=== PATIENT | female | born 1935 | race Caucasian/White ===

== ENCOUNTER 2020-07-06 22:18 | Inpatient (IN) | payer MEDICARE ==
[~2020-07-06] VITALS: Ht 162.6 cm; Wt 127.5 kg
--- NOTE | 2020-07-06 22:20 | NUR ---
PT CHRISTO 89 FROM [facility] C/O CP PASTRY DECORATOR. PT DENIES CHEST PAIN AT THIS TIME. REC'D ASA 324MG, ZOFRAN SL, AND 2 SPRAYS OF NITRO. PT AAOX4, VSS, RESPIRATIONS EVEN AND UNLABORED W/ NAD NOTED. PT CONNECTED TO THE GEOPHYSICS TEACHER AND POX.
--- NOTE | 2020-07-06 22:25 | NUR ---
BLOOD COLLECTED AND SENT TO LAB
--- NOTE | 2020-07-06 22:30 | NUR ---
XRAY AT BEDSIDE
[2020-07-06 22:38] LABS: BASOPHILS % (AUTO) 0.7 % (0.0-2.0); EOSINOPHILS % (AUTO) 1.2 % (0.0-6.0); HEMATOCRIT 33 % (33-45); HEMOGLOBIN 10.6 g/dL (11.5-14.8); LYMPHOCYTES # (AUTO) 0.9 /CMM (0.8-4.8); LYMPHOCYTES % (AUTO) 24.6 % (20.0-44.0); MEAN CORPUSCULAR HGB CONC 32 g/dl (31.0-36.0); MEAN CORPUSCULAR VOLUME 92 fL (82-100); MONOCYTES # (AUTO) 0.4 /CMM (0.1-1.30); MONOCYTES % (AUTO) 11.8 % (2.0-12.0); NEUTROPHILS # (AUTO) 2.3 /CMM (1.8-8.9); NEUTROPHILS % (AUTO) 61.7 % (43.0-81.0); PLATELET COUNT (AUTO) 188 /CMM (150-450); RED BLOOD CELL COUNT(AUTO) 3.56 MIL/uL (4.0-5.2); WHITE BLOOD COUNT (AUTO) 3.7 K/uL (4.3-11.0)
--- NOTE | 2020-07-06 22:40 | NUR ---
ROBINSON COLLECTED AND SENT TO LAB
[2020-07-06 22:51] LABS: CALCIUM, SERUM 8.5 mg/dL (8.5-10.1); CREATININE 1.3 mg/dL (0.6-1.3); POTASSIUM 4.5 mmol/L (3.5-5.1)
[2020-07-06 23:12] LABS: ALBUMIN 3.3 g/dL (3.4-5.0); BILIRUBIN,DIRECT 0.1 mg/dL (0.0-0.2); BILIRUBIN,TOTAL 0.2 mg/dL (0.2-1.0); TOTAL PROTEIN, SERUM 6.9 g/dL (6.4-8.2)
[2020-07-06] MEDS ORDERED: ATOR80TA PO (23:13)
[2020-07-06] MEDS ORDERED: ESCI20TA PO (23:13)
[2020-07-06] MEDS ORDERED: FURO-144 PO (23:13)
[2020-07-06] MEDS ORDERED: UBID100C13 PO (23:13)
[2020-07-06] MEDS ORDERED: GLIM2TAB31 PO (23:13)
[2020-07-06] MEDS ORDERED: TRAM50TA2 PO (23:13)
[2020-07-06] MEDS ORDERED: OLME20TA13 PO (23:13)
[2020-07-06] MEDS ORDERED: GABA600T12 PO (23:13)
[2020-07-06] MEDS ORDERED: AMLO-212 PO (23:13)
[2020-07-06] MEDS ORDERED: LINA5TAB PO (23:13)
[2020-07-06] MEDS ORDERED: OXCA300T15 PO (23:13)
[2020-07-06] MEDS ORDERED: HYDR-4077 PO (23:13)
[2020-07-06] MEDS ORDERED: POTA20TA83 PO (23:13)
[2020-07-06] MEDS ORDERED: MULT-447 PO (23:13)
[2020-07-06] MEDS ORDERED: ESOM40CA52 PO (23:13)
[2020-07-06] MEDS ORDERED: CHLO25TA2 PO (23:13)
[2020-07-06] MEDS ORDERED: OXYB10TA30 PO (23:13)
[2020-07-06] MEDS ORDERED: MAG HYDROX/AL HYDROX/SIMETH 30 ML UDC PO PRN (23:30)
[2020-07-06] MEDS ORDERED: ZOLPIDEM TARTRATE 5 MG TABLET PO PRN (23:30)
[2020-07-06] MEDS ORDERED: MAGNESIUM HYDROXIDE 30 ML UDC PO PRN (23:30)
[2020-07-06] MEDS ORDERED: Z GUARD REMEDY 2 OZ OINT TP PRN (23:30)
[2020-07-06] MEDS ORDERED: ONDANSETRON HCL/PF 4 MG/2 ML VIAL IVP PRN (23:30)
--- NOTE | 2020-07-06 23:33 | NUR ---
REPORT GIVEN TO LATOYA HENSON FOR GUSTABO
--- NOTE | 2020-07-06 23:49 | NUR ---
KEVIN PERDOMO. [phone] PT'S DAUGHTER
[2020-07-07] VITALS (7 sets, daily range): BP systolic 118–146; BP diastolic 52–67
--- NOTE | 2020-07-07 01:00 | NUR ---
BRAKE REPAIRER HYDRAULICSCALER PACKER NOTES RECEIVED PATIENT FROM ER VIA ISIDRORANGEL, ALERT AND ORIENTED X 4. VERBALLY RESPONSIVE AND ABLE TO FOLLOW DIRECTIONS. AMBULATORY WITH ASSIST AND WALKER. BREATHING REGULAR AND UNLABORED ON OXYGEN AT 2L/MIN VIA NASAL CANNULA. RIGHT AC G18 IV LINE INTACT AND PATENT, FLUSHING WELL WITH NO BLEEDING OR S/S OF INFILTRATION NOTED. BODY ASSESSMENT DONE, SKIN INTACT CLEAN AND DRY. ATTACHED TO PULP BEATER WITH INITIAL READING OF SINUS BRADYCARDIA AT 55bpm. DENIES SUICIDAL IDEATION OR PAIN/DISCOMFORT A THIS TIME. BED LOW AND LOCKED ON SEMI FOWLERS POSITION. CALL LIGHT IN REACH. WILL CONTINUE TO MONITOR.
--- NOTE | 2020-07-07 01:18 | NUR ---
PT TRANSFERRED TO ROOM PER ACLS PROTOCOL
--- NOTE | 2020-07-07 01:30 | NUR ---
ICU NURSE NOTES PATIENT SAID SHE HAVE AN ADVANCE DIRECTIVES AND WILL CALL HER DAUGHTER TODAY TO PROVIDE THE COPY, SHE WISHED TO BE ON DNR. "JUST LET ME NATURALLY" SHE VERBALIZED. NOTIFIED AND SAID SHE WILL PUT THE ORDERS FOR DNR.
--- NOTE | 2020-07-07 03:00 | NUR ---
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
[2020-07-07] MEDS: HYDROCODONE/APAP 5/325MG TABLET PO PRN ×5 (04:15→22:49)
[2020-07-07] MEDS: ACETAMINOPHEN 325 MG TABLET PO PRN (05:25)
--- NOTE | 2020-07-07 06:45 | NUR ---
POWER PRESS TENDER CLOSING NOTES PATIENT IN BED, ALERT AND ORIENTED X 4. AFEBRILE WITH NO S/S OF DISTRESS OBSERVED. RIGHT AC G18 IV LINE PATENT AND FLUSHING WELL. MAINTAINED ON CARDIAC MONITORING WITH SINUS BRADYCARDIA AT 52bpm. NO COMPLAINTS OF PAIN/DISCOMFORT AT THIS TIME. BED LOW AND LOCKED ON SEMI FOWLERS POSITION. CALL LIGHT IN REACH. WILL ENDORSE TO MORNING SHIFT FOR GUSTABO.
[2020-07-07 07:42] LABS: THYROID STIMULATING HORMONE 1.014 uIU/mL (0.358-3.74)
[2020-07-07] MEDS: ASPIRIN 81 MG TAB.CHEW PO SCH (08:15)
[2020-07-07] MEDS: HEPARIN SODIUM, PORCINE 5000 UNITS/1 ML VIAL SQ SCH ×2 (08:15→21:25)
[2020-07-07 10:07] LABS: PHOSPHORUS 4.4 mg/dL (2.5-4.9)
--- NOTE | 2020-07-07 11:08 | NUR ---
SKYLER KLEIN NOTES LEORA DIAZ NP EVALUATED PATIENT. MADE AWARE OF PATIENTS CT RESULTS.
[2020-07-07] MEDS: METOPROLOL TARTRATE 25 MG TABLET PO SCH ×2 (13:30→21:00)
--- NOTE | 2020-07-07 18:30 | NUR ---
ALLEY TENDER NOTES PATIENT IN BED RESTING NO SOB OR ACUTE DISTRESS NOTED. PATIENTS PAIN WAS MANAGED WITH MEDICATIONS. ALL DUE MEDICATIONS ADMINISTERED, ALL NEEDS MET. NO ACUTE CHANGES NOTED DURING AM SHIFT. WILL ENDORSE CARE TO PM SHIFT.
--- NOTE | 2020-07-07 19:30 | NUR ---
TELE/RN OPENING NOTES RECEIVED PATIENT IN BED RESTING. PATIENT IS ALERT AND ORIENTED X 4. NO SIGNS OF SOB OR RESPIRATORY DISTRESS NOTED. PATIENT TELE READING SB. NO PAIN AT THIS TIME. PATIENT HAS IV ACCESS RIGHT AC #18G INTACT SL. NO DISTRESS NOTED. SAFETY MEASURES ARE IN PLACE, BED IS LOCKED AND PLACED IN THE LOW POSITION, SIDE RAILS UP X 2, BED ALARM ON. CALL LIGHT IS WITHIN REACH. WILL MONITOR THROUGH OUT SHIFT.
[2020-07-07] MEDS: ATORVASTATIN 40 MG TABLET PO SCH (21:24)
--- NOTE | 2020-07-07 22:50 | NUR ---
TELE/MS NOTES PATIENT COMPLAINING OF PAIN AREA BACK OF NECK. NORCO 5/325 PO WAS GIVEN. V/S ARE STABLE.
[2020-07-08] VITALS (8 sets, daily range): BP systolic 121–159; BP diastolic 56–73
[2020-07-08] MEDS: HYDROCODONE/APAP 5/325MG TABLET PO PRN ×3 (03:14→09:03)
--- NOTE | 2020-07-08 03:15 | NUR ---
TELE/MS NOTES PATIENT COMPLAINING OF PAIN AREA BACK OF NECK. NORCO 5/325 PO WAS GIVEN. V/S ARE STABLE.
--- NOTE | 2020-07-08 05:45 | NUR ---
TELE/RN NOTES WHILE AMBULATING TO RESTROOM, PATIENT IV ACCESS BECAME DISLODGED. PATIENT REFUSED TO HAVE NEW IV ACCESS, RISK AND BENEFITS HAVE BEEN EXPLAINED. WILL ATTEMPT TO START NEW LINE AT LATER TIME. WILL CONTINUE TO MONITOR.
[2020-07-08] MEDS: ACETAMINOPHEN 325 MG TABLET PO PRN ×2 (05:54→16:46)
[2020-07-08 05:56] LABS: BILIRUBIN,URINE NEGATIVE (NEGATIVE); BLOOD, URINE NEGATIVE Ery/uL (NEGATIVE); COLOR,URINE YELLOW (YELLOW); LEUKOCYTE ESTERASE ,URINE NEGATIVE (NEGATIVE); NITRITE, URINE NEGATIVE (NEGATIVE); PH,URINE 5.5 (5.0-8.0); PROTEIN,URINE NEGATIVE (NEGATIVE); UGLUCOSE NEGATIVE (NEGATIVE); UROBILINOGEN,URINE 0.2 EU/dL (0.2)
--- NOTE | 2020-07-08 06:00 | NUR ---
TELE/MS NOTES PATIENT STATED PAIN AT THE BACK OF NECK AREA. TYLENOL 650 PO WAS GIVEN. WILL CONTINUE TO MONITOR.
[2020-07-08 06:07] LABS: BASOPHILS % (AUTO) 0.3 % (0.0-2.0); EOSINOPHILS % (AUTO) 0.7 % (0.0-6.0); HEMATOCRIT 31 % (33-45); LYMPHOCYTES % (AUTO) 25.7 % (20.0-44.0); MEAN CORPUSCULAR HGB CONC 32 g/dl (31.0-36.0); MEAN CORPUSCULAR VOLUME 92 fL (82-100); MONOCYTES # (AUTO) 0.4 /CMM (0.1-1.30); MONOCYTES % (AUTO) 9.1 % (2.0-12.0); NEUTROPHILS # (AUTO) 2.6 /CMM (1.8-8.9); NEUTROPHILS % (AUTO) 64.2 % (43.0-81.0); PLATELET COUNT (AUTO) 177 /CMM (150-450); RED BLOOD CELL COUNT(AUTO) 3.42 MIL/uL (4.0-5.2); WHITE BLOOD COUNT (AUTO) 4.1 K/uL (4.3-11.0)
[2020-07-08 06:10] LABS: CREATININE, URINE 96.2 MG/DL (30.0-125.0); URINE TOTAL PROTEIN 30.4 mg/dL (0-11.9)
--- NOTE | 2020-07-08 06:20 | NUR ---
TELE/RN NOTE PER PATIENT REQUEST. CALLED PATIENTS BROTHER MUKESH TO INFORM HIM OF PATIENT'S STATUS. PATIENT HAS BEEN EXPERIENCING PAIN. PATIENT SAID TO KEEP BROTHER INFORMED OF CARE.
[2020-07-08 06:26] LABS: ALANINE AMINOTRANSFERASE 26 U/L (12-78); ALBUMIN 3.1 g/dL (3.4-5.0); ALKALINE PHOSPHATASE 87 U/L (46-116); ASPARTATE AMINOTRANSFERASE 22 U/L (15-37); BILIRUBIN,TOTAL 0.2 mg/dL (0.2-1.0); CALCIUM, SERUM 8.1 mg/dL (8.5-10.1); CARBON DIOXIDE 28 mmol/L (21-32); CHLORIDE 102 mmol/L (98-107); CREATININE 1.4 mg/dL (0.6-1.3); GLUCOSE 130 mg/dL (74-106); PHOSPHORUS 3.6 mg/dL (2.5-4.9); POTASSIUM 4.3 mmol/L (3.5-5.1); SODIUM SERUM 138 mmol/L (136-145); TOTAL PROTEIN, SERUM 6.6 g/dL (6.4-8.2); UREA NITROGEN, BLOOD 32 mg/dL (7-18)
--- NOTE | 2020-07-08 06:35 | NUR ---
TELE/RN CLOSING NOTES PATIENT IN BED RESTING. PATIENT IS ALERT AND ORIENTED X 4. NO SIGNS OF SOB OR RESPIRATORY DISTRESS NOTED. PATIENT TELE READING SB 58 BPM. PATIENT STILL EXPERIENCING PAIN AT THIS TIME. NO DISTRESS NOTED. ALL NEEDS HAVE BEEN MET DURING SHIFT. SAFETY MEASURES ARE IN PLACE, BED IS LOCKED AND PLACED IN THE LOW POSITION, SIDE RAILS UP X 2, BED ALARM ON. CALL LIGHT IS WITHIN REACH. WILL ENDORSE CARE TO DAY SHIFT NURSE.
--- NOTE | 2020-07-08 07:58 | NUR ---
RN Opening note Received patient in bed AO x 3-4 , able to responds all stimuli. Skin is warm to touch, keep clean/dry. Respiratory even and unlabored on room. Patient refused reinsert IV line reported engine test cell technician. Kept locked bed with elevated HOB for ensure airway and lowest position for safety. Call light within reach and bed alarm on at all times. Call light within reach, will continue to monitor.
[2020-07-08] MEDS: ASPIRIN 81 MG TAB.CHEW PO SCH ×2 (08:48→09:04)
[2020-07-08] MEDS: METOPROLOL TARTRATE 25 MG TABLET PO SCH ×2 (08:53→09:03)
[2020-07-08] MEDS: HEPARIN SODIUM, PORCINE 5000 UNITS/1 ML VIAL SQ SCH ×2 (09:00→21:27)
--- NOTE | 2020-07-08 09:04 | NUR ---
Patient refused all due morning medications stated "All these medications make me crazy I don't want it!' Addendum: 07/08/20 at 0912 by REAGAN HARRIS RN Error
--- NOTE | 2020-07-08 09:12 | NUR ---
Patient changed mind and refused all due morning medications stated "All these medications make me crazy I don't want it!' " I want Tylenol instead.' Will return meds and give Tylenol.
--- NOTE | 2020-07-08 09:53 | NUR ---
[facility] called x 3 asked primary Nurse Covid test result, mentioned them to get information from Brother/Donovan.
[2020-07-08 10:49] LABS: EOSINOPHIL,URINE None Seen
[2020-07-08 15:48] LABS: C-REACTIVE PROTEIN 2.9 mg/dL (0.0-0.9)
--- NOTE | 2020-07-08 16:07 | NUR ---
Called [facility] to obtain pathrogy and mediacl record but they closed already. Will endorse next shift to follow up.
--- NOTE | 2020-07-08 18:00 | NUR ---
RN Closing note Patient in bed resting comfortably, dos no c/o pain or any discomfort. Received labs, repeat ultra sound and obtain pathology/medical record for skin malignancy from facility ordered by AYANNA/Ana. Called [facility] but office closed already, AWNING ERECTOR mentioned if does not finish labs, pt can do as out patient. Skin is warm to touch keep clean/dry, given skin care. Respiratory even and unlabored on room air O2sat 95%., no cough sob observed. Kept locked bed and elevated HOB for aspiration precaution, also lowest position for safety. Call light within reach, will endorse beam house inspector.
--- NOTE | 2020-07-08 19:05 | NUR ---
RN NOTE RECEIVED PATIENT IN BED RESTING WITH HOB ELEVATED. PATIENT IS ALERT AND ORIENTED X 2-3. DNR/DNI CODE STATUS. ON ISOLATION FOR POSITIVE FOR COVID-19. PATIENT IS VERBALLY RESPONSIVE IN MALDIVIAN. SPEECH IS CLEAR. BREATHING IS EVEN AND UNLABORED. NO SOB NOTED AT THIS TIME. O2 SAT IS 95% ON ROOM AIR. PER AM SHIFT REPORT, PATIENT HAS PERIODS OF CONFUSION. PATIENT ALSO REFUSED IV INSERTION PER AM NURSE, AWARE. SKIN IS INTACT. PATIENT IS AMBULATORY WITH WALKER. PATIENT IS INCONTINENT OF BLADDER. COMMODE IS AT BED SIDE. IN NO APPARENT DISTRESS NOTED AT THIS TIME. CALL LIGHT IS WITHIN EASY REACH. WILL CONTINUE TO MONITOR.
[2020-07-08 19:12] LABS: OCCULT BLOOD STOOL NEGATIVE (NEGATIVE)
[2020-07-08] MEDS: ATORVASTATIN 40 MG TABLET PO SCH (21:26)
--- NOTE | 2020-07-08 23:30 | NUR ---
RN NOTE NOTED PATIENT HAD BP OF 190/77. INFORMED HAND PICKER , DR. CASIANO. RECEIVED ORDER FOR HYDRALAZINE 25 MG PO Q4H PRN FOR SBP > 160. ORDER NOTED AND CARRIED OUT. WILL CONTINUE TO MONITOR.
[2020-07-09] VITALS: BP 190/77
[2020-07-09] MEDS: hydrALAZINE HCL 25 MG TABLET PO PRN ×2 (00:03→11:02)
[2020-07-09 04:00] VITALS: BP 158/104
--- NOTE | 2020-07-09 06:55 | NUR ---
RN NOTE PATIENT REMAINED STABLE THROUGHOUT THE NIGHT. NO SIGNIFICANT CHANGES NOTED. ON BILATERAL SOFT WRIST RESTRAINTS. PATIENT STILL TRIES TO PULL OUT IV LINES. PATIENT IS KEPT CLEAN, DRY, AND COMFORTABLE. REPOSITIONED Q2H. DUE MEDS GIVEN ORDERED AND TOLERATED WELL. WILL ENDORSE TO AM SHIFT RN FOR CONTINUATION OF CARE. Addendum: 07/09/20 at 0700 by SANFORD BASHIR RN WRONG PATIENT.
--- NOTE | 2020-07-09 07:07 | NUR ---
RN NOTE PATIENT REMAINED STABLE THROUGHOUT THE NIGHT. NO SIGNIFICANT CHANGES NOTED. PATIENT IS KEPT CLEAN, DRY, AND COMFORTABLE. PATIENT TAKEN TO BEDSIDE COMMODE 5 TIMES THROUGHOUT THE NIGHT. DUE MEDS GIVEN ORDERED AND TOLERATED WELL. WILL ENDORSE TO AM SHIFT RN FOR CONTINUATION OF CARE.
--- NOTE | 2020-07-09 07:20 | NUR ---
BINDER LAYER NOTES PATIENT RECEIVED IN BED, ALERT AND ORIENTED X 2-3. PATIENT ON 2 LITERS NASAL CANNULA, TOLERATING OXYGEN SETTING WELL WITH NO SOB NOTED AT THIS TIME, WITH NON-LABORED BREATHING. PATIENT HAS NO IV ACCESS STATED BY NIGHTSHIFT RN, MD IS AWARE. ON CORPORATE AIRCRAFT MECHANIC SINUS RHYTHM WITH BBB, 60'S. PATIENT SKIN WARM AND DRY TO TOUCH. PATIENT DENIES PAIN OR DISCOMFORT AT THIS TIME. SAFETY PRECAUTIONS IMPLEMENTED WITH BED LOCKED, BED ALARM ON, BILATERAL SIDE RAILS UP, BED IN THE LOWEST POSITION, AND CALL LIGHT WITHIN EASY REACH OF PATIENT. WILL CONTINUE TO MONITOR PATIENT.
[2020-07-09 08:00] VITALS: BP 168/82
[2020-07-09] MEDS: METOPROLOL TARTRATE 25 MG TABLET PO SCH ×2 (08:59→21:45)
[2020-07-09] MEDS: ASPIRIN 81 MG TAB.CHEW PO SCH (08:59)
[2020-07-09] MEDS: HEPARIN SODIUM, PORCINE 5000 UNITS/1 ML VIAL SQ SCH ×2 (09:03→21:33)
[2020-07-09 09:35] LABS: IMMUNOGLOBULIN A, SERUM 126 mg/dL (64-422); IMMUNOGLOBULIN G, SERUM 1019 mg/dL (586-1602); IMMUNOGLOBULIN M, SERUM 255 mg/dL (26-217)
[2020-07-09 12:00] VITALS: BP 157/85
--- NOTE | 2020-07-09 12:05 | NUR ---
Attempted to perform BONE SURVEY XRAYS on patient, twice this morning, one at 1000 and another at 1207. Only Chest,, skull, cervical and thoracic AP views were taken. LATOYA shelley.
--- NOTE | 2020-07-09 15:36 | NUR ---
FILTER OPERATOR NOTES CALLED [facility], , FOR MEDICAL REPORTS AND PATHOLOGY REPORTS, STATES THEY ARE CLOSED DURING THE WEEKEND AND TO CALL BACK ON SATURDAY.
[2020-07-09 16:00] VITALS: BP 115/91
[2020-07-09 16:40] LABS: *ANA ANTI-CENTROMERE B AB <0.2 AI (0.0-0.9); *ANA ANTI-DNA(DS) AB, QN 2 IU/mL (0-9); *ANA ANTI-JO-1 <0.2 AI (0.0-0.9); *ANA ANTICHROMATIN ANTIBODY <0.2 AI (0.0-0.9); *ANA RNP ANTIBODIES <0.2 AI (0.0-0.9); *ANA SJOGREN'S ANTI-SS-A <0.2 AI (0.0-0.9); *ANA SJOGREN'S ANTI-SS-B <0.2 AI (0.0-0.9); *ANAANTI-SCLERODERMA-70 AB <0.2 AI (0.0-0.9); *ANASMITH AB <0.2 AI (0.0-0.9)
--- NOTE | 2020-07-09 18:22 | NUR ---
FRONT ATTENDANT NOTES PATIENT IN BED RESTING COMFORTABLY, ALERT AND ORIENTED X 2-3. PATIENT ON 2 LITERS NASAL CANNULA, TOLERATING OXYGEN SETTING WELL WITH NO SOB NOTED AT THIS TIME, WITH NON-LABORED BREATHING AND NO RESPIRATORY DISTRESS NOTED. PATIENT HAS NO IV ACCESS MD IS AWARE. ON NET LEAD ARCHITECT, SINUS JERSON 50'S. PATIENT PRESENTS WITH NO PAIN OR DISCOMFORT AT THIS TIME. MET ALL OF PATIENT'S NEEDS. SAFETY PRECAUTIONS IMPLEMENTED WITH BED LOCKED, BED ALARM ON, BILATERAL SIDE RAILS UP, BED IN THE LOWEST POSITION, AND CALL LIGHT WITHIN EASY REACH OF PATIENT. WILL ENDORSE PLAN OF CARE TO UPCOMING RN.
--- NOTE | 2020-07-09 19:00 | NUR ---
RN OPENING NOTES Received patient awake, resting on bed. On O2 via NC @ 2LPM, saturating well, denies any discomfort at this time. NSR on telemonitor. Kept on bed clean, dry and comfortable. On fall and aspiration precautions. Will continue to monitor accordingly.
[2020-07-09 20:00] VITALS: BP 151/67
[2020-07-09] MEDS: ATORVASTATIN 40 MG TABLET PO SCH (21:32)
[2020-07-09] MEDS: ACETAMINOPHEN 325 MG TABLET PO PRN (22:00)
[2020-07-10] VITALS (7 sets, daily range): BP systolic 140–167; BP diastolic 47–78
[2020-07-10] MEDS: hydrALAZINE HCL 25 MG TABLET PO PRN (06:06)
--- NOTE | 2020-07-10 06:49 | NUR ---
RN CLOSING NOTES Pt on bed asleep, no new complaints made. Due meds given as ordered. All nursing needs attended. Kept on bed clean, dry and comfortable. Endorsed.
--- NOTE | 2020-07-10 07:15 | NUR ---
CLINICAL RESEARCH ASSISTANT NOTES PATIENT RECEIVED IN BED, ALERT AND ORIENTED X 2-3. PATIENT ON 2 LITERS NASAL CANNULA, TOLERATING OXYGEN SETTING WELL WITH NO SOB NOTED AT THIS TIME, WITH NON-LABORED BREATHING, AND NO SIGN OF APPARENT DISTRESS AT THIS TIME. PATIENT HAS NO IV ACCESS, MD IS AWARE. PATIENT'S SKIN WARM AND DRY TO TOUCH. ON WOVEN BLIND LOOM TENDER SINUS JERSON, 50'S. PATIENT DENIES PAIN OR DISCOMFORT AT THIS TIME. SAFETY PRECAUTIONS IMPLEMENTED WITH BED LOCKED, BED ALARM ON, BILATERAL SIDE RAILS UP, BED IN THE LOWEST POSITION, AND CALL LIGHT WITHIN EASY REACH OF PATIENT. WILL CONTINUE TO MONITOR PATIENT.
[2020-07-10] MEDS ORDERED: METHYL SALICYLATE/MENTHOL 28GM 28 GM TUBE TP PRN (09:00)
[2020-07-10] MEDS: HEPARIN SODIUM, PORCINE 5000 UNITS/1 ML VIAL SQ SCH ×2 (09:10→21:39)
[2020-07-10] MEDS: ASPIRIN 81 MG TAB.CHEW PO SCH (09:10)
[2020-07-10] MEDS: METOPROLOL TARTRATE 25 MG TABLET PO SCH ×2 (09:24→21:00)
[2020-07-10 10:03] LABS: BASOPHILS % (AUTO) 0.4 % (0.0-2.0); EOSINOPHILS % (AUTO) 0.2 % (0.0-6.0); HEMATOCRIT 33 % (33-45); HEMOGLOBIN 10.8 g/dL (11.5-14.8); LYMPHOCYTES # (AUTO) 0.7 /CMM (0.8-4.8); LYMPHOCYTES % (AUTO) 18.1 % (20.0-44.0); MEAN CORPUSCULAR HGB CONC 33 g/dl (31.0-36.0); MEAN CORPUSCULAR VOLUME 91 fL (82-100); MONOCYTES # (AUTO) 0.3 /CMM (0.1-1.30); NEUTROPHILS # (AUTO) 2.7 /CMM (1.8-8.9); NEUTROPHILS % (AUTO) 72.3 % (43.0-81.0); PLATELET COUNT (AUTO) 168 /CMM (150-450); RED BLOOD CELL COUNT(AUTO) 3.62 MIL/uL (4.0-5.2); WHITE BLOOD COUNT (AUTO) 3.7 K/uL (4.3-11.0)
[2020-07-10 10:24] LABS: CALCIUM, SERUM 8.1 mg/dL (8.5-10.1); CREATININE 1.1 mg/dL (0.6-1.3)
[2020-07-10] MEDS ORDERED: DEXTROSE 50%-WATER 50 ML DISP.SYRIN IV PRN (11:30)
[2020-07-10] MEDS ORDERED: NALOXONE HCL 0.4 MG/ML AMPUL IV PRN (11:30)
[2020-07-10] MEDS ORDERED: HOME MED MISCELLANEOUS XX SCH ×2 (11:30)
[2020-07-10] MEDS: PANTOPRAZOLE 40 MG TABLET.DR PO SCH (12:06)
[2020-07-10] MEDS: BLOOD SUGAR DIAGNOSTIC 1 EACH STRIP IN SCH ×3 (12:06→22:10)
[2020-07-10] MEDS: ESCITALOPRAM OXALATE (10 MG) 10 MG TABLET PO SCH (12:06)
[2020-07-10] MEDS: FUROSEMIDE 40 MG TABLET PO SCH (12:06)
[2020-07-10] MEDS: GABAPENTIN 300 MG CAPSULE PO SCH ×2 (12:06→16:33)
[2020-07-10] MEDS: INSULIN REGULAR, HUMAN 100 UNIT/ML 3 ML VIAL SQ PRN ×2 (12:13→22:11)
[2020-07-10] MEDS ORDERED: SOD FERRIC GLUC 125 MG in IV NS 0.9% 100 ML IV SCH (14:00)
--- NOTE | 2020-07-10 14:40 | NUR ---
SIDE BOSS NOTES INFORMED HOSPITALIST LEORA DIAZ DNP ABOUT PATIENT'S HEART RATE, SINUS BRADYCARDIA IN THE 40'S, PATIENTS IS ALERT AND ASYMPTOMATIC AT THIS TIME. NO NEW ORDERS MADE, WILL CONTINUE TO MONITOR PATIENT.
[2020-07-10] MEDS: POTASSIUM CHLORIDE 20 MEQ TAB.PRT.SR PO SCH (16:33)
[2020-07-10] MEDS: OXCARBAZEPINE 150 MG TABLET PO SCH (16:33)
[2020-07-10] MEDS: HYDROCODONE/APAP 5/325MG TABLET PO PRN (18:33)
--- NOTE | 2020-07-10 19:19 | NUR ---
GRAIN ELEVATOR AGENT NOTES PATIENT IN BED RESTING COMFORTABLY, ALERT AND ORIENTED X 2-3. PATIENT ON 2 LITERS NASAL CANNULA, TOLERATING OXYGEN SETTING WELL WITH NO SOB NOTED AT THIS TIME, WITH NON-LABORED BREATHING AND NO RESPIRATORY DISTRESS NOTED. PATIENT STARTED TO COMPLAIN OF DULL CHEST PAIN, 5/10, PATIENT REQUESTING PAIN MEDICATIONS, ADMINISTERED PRN NORCO ORDERED. PATIENT HAS NO IV ACCESS MD IS AWARE. ON AUTOMATIC PAD MAKING MACHINE OPERATOR, SINUS JERSON 43. MET ALL OF PATIENT'S NEEDS. SAFETY PRECAUTIONS IMPLEMENTED WITH BED LOCKED, BED ALARM ON, BILATERAL SIDE RAILS UP, BED IN THE LOWEST POSITION, AND CALL LIGHT WITHIN EASY REACH OF PATIENT. WILL ENDORSE PLAN OF CARE TO UPCOMING RN.
--- NOTE | 2020-07-10 19:33 | NUR ---
Received patient from morning nurse. Patient is awake, alert, and oriented x3, resting comfortably. Patient denies pain at this time. Patient breathing with 2L Oxygen via nasal canula. No SOB or acute respiratory distress noted. Noted no IV access. Asked patient if I can insert an access, patient refused. Explained risk and benefit to patient but patient still refused. Safety measure in place, bed is in the lowest level, bed is locked, alarm is on, side rails x2 are up, and call light is within reach. Will continue to monitor.
--- NOTE | 2020-07-10 20:10 | NUR ---
Patient's daughter, Rema, called, wanted to speak to patient. Transferred daughter to patient's room phone.
--- NOTE | 2020-07-10 21:20 | NUR ---
Patient's daughter, Krista, called, wanted to speak to patient. Transferred daughter to patient's room phone.
--- NOTE | 2020-07-10 21:37 | NUR ---
Patient HR 44. Made Epic MD aware. Was told my Epic MD to non administer medication.
[2020-07-10] MEDS: ATORVASTATIN 40 MG TABLET PO SCH (21:38)
[2020-07-11] VITALS (7 sets, daily range): BP systolic 124–171; BP diastolic 46–76
[2020-07-11] MEDS: hydrALAZINE HCL 25 MG TABLET PO PRN (05:08)
[2020-07-11] MEDS: ACETAMINOPHEN 325 MG TABLET PO PRN ×2 (05:08→14:59)
--- NOTE | 2020-07-11 05:08 | NUR ---
Patient temperature 100.3. Administered PRN Tylenol per MD order. Also provided cooling measures. Will continue to monitor.
--- NOTE | 2020-07-11 05:09 | NUR ---
Patient BP 171/77. Administered Hydralazine per MD order. Will continue to monitor.
[2020-07-11] MEDS: BLOOD SUGAR DIAGNOSTIC 1 EACH STRIP IN SCH ×4 (06:47→21:24)
[2020-07-11] MEDS: INSULIN REGULAR, HUMAN 100 UNIT/ML 3 ML VIAL SQ PRN ×4 (06:52→21:23)
[2020-07-11 06:54] LABS: CALCIUM, SERUM 8.2 mg/dL (8.5-10.1); CREATININE 1.1 mg/dL (0.6-1.3); POTASSIUM 4.2 mmol/L (3.5-5.1)
--- NOTE | 2020-07-11 07:00 | NUR ---
Rechecked patient temperature, 98.8. Will endorse to morning nurse.
--- NOTE | 2020-07-11 07:00 | NUR ---
Rechecked blood pressure, resulted 124/46, HR 51. Will endorse to next shift.
[2020-07-11 07:03] LABS: BASOPHILS % (AUTO) 0.2 % (0.0-2.0); EOSINOPHILS % (AUTO) 0.2 % (0.0-6.0); HEMATOCRIT 32 % (33-45); HEMOGLOBIN 10.3 g/dL (11.5-14.8); LYMPHOCYTES # (AUTO) 0.7 /CMM (0.8-4.8); MEAN CORPUSCULAR HGB CONC 33 g/dl (31.0-36.0); MEAN CORPUSCULAR VOLUME 91 fL (82-100); MONOCYTES # (AUTO) 0.3 /CMM (0.1-1.30); MONOCYTES % (AUTO) 8.6 % (2.0-12.0); NEUTROPHILS # (AUTO) 2.8 /CMM (1.8-8.9); PLATELET COUNT (AUTO) 167 /CMM (150-450); RED BLOOD CELL COUNT(AUTO) 3.47 MIL/uL (4.0-5.2); WHITE BLOOD COUNT (AUTO) 3.9 K/uL (4.3-11.0)
--- NOTE | 2020-07-11 07:15 | NUR ---
PRODUCT MARKETING ENGINEER NOTES PATIENT RECEIVED IN BED, SLEEPING AWAKEN BY NAME AND LIGHT TOUCH, ALERT AND ORIENTED X 2-3. PATIENT ON 2 LITERS NASAL CANNULA, TOLERATING OXYGEN SETTING WELL WITH NO SOB NOTED AT THIS TIME, WITH NON-LABORED BREATHING, AND NO SIGN OF APPARENT DISTRESS AT THIS TIME. PATIENT HAS NO IV ACCESS, MD IS AWARE, AND PATIENT STILL REFUSING. PATIENT'S SKIN WARM AND DRY TO TOUCH. ON CHEMIST SINUS JERSON, 47. PATIENT DENIES PAIN OR DISCOMFORT AT THIS TIME. SAFETY PRECAUTIONS IMPLEMENTED WITH BED LOCKED, BED ALARM ON, BILATERAL SIDE RAILS UP, BED IN THE LOWEST POSITION, AND CALL LIGHT WITHIN EASY REACH OF PATIENT. WILL CONTINUE TO MONITOR PATIENT.
--- NOTE | 2020-07-11 07:34 | NUR ---
RN CLOSING NOTE: Patient resting comfortably in bed. No SOB or acute respiratory distress noted. Safety measure is maintained, bed is in the lowest level, bed is locked, alarm is on, side rails x2 are up, and call light is within reach. Will endorse to next shift.
[2020-07-11] MEDS: TRAMADOL HCL 50 MG TABLET PO SCH (09:00)
[2020-07-11] MEDS ORDERED: AMLODIPINE BESYLATE 5 MG TABLET PO SCH (09:00)
[2020-07-11] MEDS: METOPROLOL TARTRATE 25 MG TABLET PO SCH ×2 (09:00→21:00)
[2020-07-11] MEDS: ASPIRIN 81 MG TAB.CHEW PO SCH (09:13)
[2020-07-11] MEDS: HEPARIN SODIUM, PORCINE 5000 UNITS/1 ML VIAL SQ SCH ×2 (09:13→21:24)
[2020-07-11] MEDS: FUROSEMIDE 40 MG TABLET PO SCH (09:14)
[2020-07-11] MEDS: GABAPENTIN 300 MG CAPSULE PO SCH ×3 (09:14→16:45)
[2020-07-11] MEDS: MULTIVITAMINS,THERAGRAN 1 UDTAB TABLET PO SCH (09:14)
[2020-07-11] MEDS: PANTOPRAZOLE 40 MG TABLET.DR PO SCH (09:14)
[2020-07-11] MEDS: POTASSIUM CHLORIDE 20 MEQ TAB.PRT.SR PO SCH ×2 (09:14→16:46)
[2020-07-11] MEDS: oxyCODONE HCL SR 10MG TAB.SR.12H PO SCH (09:15)
[2020-07-11] MEDS: ESCITALOPRAM OXALATE (10 MG) 10 MG TABLET PO SCH (09:16)
[2020-07-11] MEDS: OXCARBAZEPINE 150 MG TABLET PO SCH ×2 (09:16→16:45)
--- NOTE | 2020-07-11 11:00 | NUR ---
MATERIAL CHASER NOTES CALLED [facility], , FOR MEDICAL REPORTS AND PATHOLOGY REPORTS, SPOKE TO AURORA AND STATES THERE ARE NO MEDICAL RECORDS ON PATHOLOGY AND RECORDS OF SKIN MALIGNANCY.
[2020-07-11 12:06] LABS: *SPE A/G RATIO 0.9 (0.7-1.7); *SPE ALBUMIN 3.1 g/dL (2.9-4.4); *SPE ALPHA-1-GLOBULIN 0.3 g/dL (0.0-0.4); *SPE ALPHA-2-GLOBULIN 0.9 g/dL (0.4-1.0); *SPE BETA GLOBULIN 0.8 g/dL (0.7-1.3); *SPE GLOBULIN, TOTAL 3.3 g/dL (2.2-3.9); *SPE M-SPIKE Not Observed g/dL (Not Observed); *SPEGAMMA GLOBULIN 1.3 g/dL (0.4-1.8)
--- NOTE | 2020-07-11 15:00 | NUR ---
TOUCH UP PAINTER HAND NOTES PATIENT STATING MILD HEADACHE, REQUESTING TYLENOL. ADMINISTERED PRN TYLENOL ORDERED, WILL CONTINUE TO MONITOR PATIENT.
[2020-07-11] MEDS: FERROUS SULFATE (325 MG) 325 MG/TAB TABLET PO SCH (16:45)
--- NOTE | 2020-07-11 18:24 | NUR ---
SUPERVISOR GENERAL NOTES PATIENT IN BED RESTING COMFORTABLY, ALERT AND ORIENTED X 2-3. PATIENT ON 2 LITERS NASAL CANNULA, TOLERATING OXYGEN SETTING WELL WITH NO SOB NOTED AT THIS TIME, WITH NON-LABORED BREATHING AND NO RESPIRATORY DISTRESS NOTED. PATIENT HAS NO IV ACCESS MD IS AWARE. SKIN KEPT CLEAN, WARM AND DRY TO TOUCH. ON PANTS PRESSER AUTOMATIC, SINUS JERSON 49. MET ALL OF PATIENT'S NEEDS. SAFETY PRECAUTIONS IMPLEMENTED WITH BED LOCKED, BED ALARM ON, BILATERAL SIDE RAILS UP, BED IN THE LOWEST POSITION, AND CALL LIGHT WITHIN EASY REACH OF PATIENT. WILL ENDORSE PLAN OF CARE TO UPCOMING RN.
--- NOTE | 2020-07-11 20:00 | NUR ---
HEAT TREATER HELPER NOTES REPORT RECIEVED FROM CAMPOS KLEIN. PATIENT IN BED ALERT AND ORIENTED X3. PATIENT ON 2 LITERS NC, DENIES SOB AT THIS TIME, BREATHING EVEN AND NON LABORED.PATIENT HAS NO IV ACCESS MD IS AWARE PER REPORT. ON BUSINESS SERVICES ADMINISTRATOR, SINUS JERSON 50'S. BED DOWN, LOCKED, BED ALARM ON, BILATERAL SIDE RAILS UP, BED IN THE LOWEST POSITION, AND CALL LIGHT WITHIN EASY REACH OF PATIENT. PT VERBALIZED UNDERSTANDING TO CALL FOR ASSISTANCE IF NEEDED. DISCUSSED NEED TO COLLECT SPUTUM SAMPLE WITH PATIENT AND NEED TO COLLECT URINE SAMPLE WITH PATIENT. VERBALZIED UNDRSTANDING. WILL CONT TO MONITOR.
[2020-07-11] MEDS: ATORVASTATIN 40 MG TABLET PO SCH (21:24)
[2020-07-12] VITALS: BP 151/68
[2020-07-12 04:00] VITALS: BP 131/58
--- NOTE | 2020-07-12 07:01 | NUR ---
SUPERINTENDENT TRANSMISSION NOTES CLOSING NOTE PATIENT IN BED SEEN WITH EYES CLOSED ON 2 LITERS NC, BREATHING EVEN AND NON LABORED.PATIENT STILL HAS NO IV ACCESS MD IS AWARE PER EARLIER REPORT. PT ON MICROCOMPUTER TECHNICIAN, SINUS JERSON 50'S. BED DOWN, LOCKED, BED ALARM ON, BILATERAL SIDE RAILS UP, BED IN THE LOWEST POSITION, AND CALL LIGHT WITHIN EASY REACH OF PATIENT. DISCUSSED NEED SPUTUM SAMPLE NOT YET COLLECTED PT REPORTS THAT SHE IS DRY AND CANT PRODUCE. PT WAS INCONTINENT SO URINE NOT COLLECTED. WILL ENDORSE TO ONCOMING SHIFT.
[2020-07-12 07:20] LABS: C-REACTIVE PROTEIN 7.5 mg/dL (0.0-0.9)
--- NOTE | 2020-07-12 07:30 | NUR ---
RN OPENING NOTES PATIENT IN BED IS ALERT AND AWAKE. PT IS ON 2 LITERS NC, BREATHING EVEN AND NON LABORED WITH WHEEZING .PATIENT STILL HAS NO IV ACCESS MD IS AWARE PER PM NURSE. PT ON DATA COORDINATOR, SINUS RHYTHM.SAFETY MEASUREMENTS ARE IMMPLEMENTED PER HOSPITAL POLICY. BED DOWN, LOCKED, BED ALARM ON, BILATERAL SIDE RAILS UP, BED IN THE LOWEST POSITION, AND CALL LIGHT WITHIN EASY REACH OF PATIENT. DISCUSSED NEED SPUTUM SAMPLE NOT YET COLLECTED. WILL CONTINUE TO MONITOR
[2020-07-12] MEDS: BLOOD SUGAR DIAGNOSTIC 1 EACH STRIP IN SCH ×4 (07:54→22:51)
[2020-07-12 08:00] VITALS: BP 132/51
[2020-07-12] MEDS: INSULIN REGULAR, HUMAN 100 UNIT/ML 3 ML VIAL SQ PRN ×3 (08:09→22:31)
[2020-07-12] MEDS: ASPIRIN 81 MG TAB.CHEW PO SCH (08:10)
[2020-07-12] MEDS: GABAPENTIN 300 MG CAPSULE PO SCH ×3 (08:11→16:03)
[2020-07-12] MEDS: TRAMADOL HCL 50 MG TABLET PO SCH (08:11)
[2020-07-12] MEDS: FUROSEMIDE 40 MG TABLET PO SCH (08:11)
[2020-07-12] MEDS: POTASSIUM CHLORIDE 20 MEQ TAB.PRT.SR PO SCH ×2 (08:11→16:03)
[2020-07-12] MEDS: PANTOPRAZOLE 40 MG TABLET.DR PO SCH (08:11)
[2020-07-12] MEDS: oxyCODONE HCL SR 10MG TAB.SR.12H PO SCH ×2 (08:12→08:42)
[2020-07-12] MEDS: MULTIVITAMINS,THERAGRAN 1 UDTAB TABLET PO SCH (08:12)
[2020-07-12] MEDS: OXCARBAZEPINE 150 MG TABLET PO SCH ×2 (08:12→16:03)
[2020-07-12] MEDS: HEPARIN SODIUM, PORCINE 5000 UNITS/1 ML VIAL SQ SCH ×2 (08:13→22:32)
[2020-07-12] MEDS: ESCITALOPRAM OXALATE (10 MG) 10 MG TABLET PO SCH (08:15)
[2020-07-12] MEDS: METOPROLOL TARTRATE 25 MG TABLET PO SCH ×2 (08:16→21:00)
[2020-07-12] MEDS: AMLODIPINE BESYLATE 5 MG TABLET PO SCH (08:16)
[2020-07-12] MEDS: FERROUS SULFATE (325 MG) 325 MG/TAB TABLET PO SCH ×3 (08:20→16:03)
--- NOTE | 2020-07-12 08:42 | NUR ---
RN NOTES PT REFUSED THE OXYCONTIN DOESNT LIKE THE WAY SHE FEELS
--- NOTE | 2020-07-12 11:24 | NUR ---
RN NOTES PER MISC ORDER PUT PT IN THE CHAIR. PT IS TOLERATING WELL. NO SOB OR DISTRESS NOTED
--- NOTE | 2020-07-12 11:30 | NUR ---
RN NOTES SEND URINE SAMPLE TO LAB
[2020-07-12 12:00] VITALS: BP 129/53
--- NOTE | 2020-07-12 13:16 | NUR ---
RN NOTES CRISTIN RT ON THE BED SIDE
--- NOTE | 2020-07-12 15:45 | NUR ---
RN NOTES PT HAS A FEVER 99.5 GAVE TYLENOL
[2020-07-12 16:00] VITALS: BP 137/59
[2020-07-12] MEDS: ACETAMINOPHEN 325 MG TABLET PO PRN (16:11)
[2020-07-12] MEDS ORDERED: DEXAMETHASONE SOD PHOSPHATE 10 MG/ML VIAL IV SCH (16:30)
--- NOTE | 2020-07-12 16:30 | NUR ---
RN NOTES DR DIAZ ORDERED IV OF DEXAMETHASONE BUT PT HAS NO IV ACCESS SO INFORMED DR TO GIVE PO AND DR SAID OK
[2020-07-12] MEDS: DEXAMETHASONE 4 MG TABLET PO SCH (18:02)
--- NOTE | 2020-07-12 18:24 | NUR ---
RN CLOSING NOTES PATIENT IN BED RESTING IS ALERT AND AWAKE AND ORIENTED X3. PT IS ON 2 LITERS NC, BREATHING EVEN AND NON LABORED WITH A LITTLE BIT WHEEZING .PATIENT STILL HAS NO IV ACCESS MD . PT ON WHEEL ADJUSTER, SINUS RHYTHM.SAFETY MEASUREMENTS ARE IMPLEMENTED PER HOSPITAL POLICY. BED DOWN AND LOCKED, BED ALARM IS ON, BILATERAL SIDE RAILS ARE UP, BED IS IN THE LOWEST POSITION, AND CALL LIGHT WITHIN THE REACH OF PATIENT. WILL ENDORSE TO PM NURSE FOR GUSTABO
[2020-07-12 20:00] VITALS: BP 132/61
[2020-07-12 20:05] LABS: BILIRUBIN,URINE NEGATIVE (NEGATIVE); BLOOD, URINE NEGATIVE Ery/uL (NEGATIVE); COLOR,URINE YELLOW (YELLOW); LEUKOCYTE ESTERASE ,URINE NEGATIVE (NEGATIVE); NITRITE, URINE NEGATIVE (NEGATIVE); PH,URINE 5.5 (5.0-8.0); PROTEIN,URINE 30 mg/dl (NEGATIVE); UGLUCOSE NEGATIVE (NEGATIVE); UROBILINOGEN,URINE 0.2 EU/dL (0.2)
[2020-07-12 20:20] LABS: BACTERIA,URINE Few /HPF (None Seen); RBC,URINE 0-2 /HPF (0-2); SQUAMOUS EPITHELIAL CELL,UR Many /HPF (None Seen)
[2020-07-12] MEDS: ATORVASTATIN 40 MG TABLET PO SCH (22:51)
[2020-07-13] VITALS: BP 134/63
[2020-07-13 04:00] VITALS: BP 139/62
[2020-07-13] MEDS: BLOOD SUGAR DIAGNOSTIC 1 EACH STRIP IN SCH ×4 (06:37→22:05)
[2020-07-13] MEDS: INSULIN REGULAR, HUMAN 100 UNIT/ML 3 ML VIAL SQ PRN ×4 (06:43→22:17)
--- NOTE | 2020-07-13 07:15 | NUR ---
ETL DEVELOPER NOTES PATIENT IN BED ALERT ORIENTED X 3. NO ACUTE DISTRESS NOTED. NO SOB NOTED. PATIENT REFUSED IV ACCESS, MD AWARE. HEAD OF BED ELEVATED. SAFETY MEASURES IN PLACE. CALL LIGHT WITHIN REACH. WILL CONTINUE TO MONITOR ACCORDINGLY.
[2020-07-13 08:00] VITALS: BP 139/82
[2020-07-13] MEDS: HEPARIN SODIUM, PORCINE 5000 UNITS/1 ML VIAL SQ SCH ×2 (08:59→22:05)
[2020-07-13] MEDS: MULTIVITAMINS,THERAGRAN 1 UDTAB TABLET PO SCH (09:00)
[2020-07-13] MEDS: ASPIRIN 81 MG TAB.CHEW PO SCH (09:00)
[2020-07-13] MEDS: oxyCODONE HCL SR 10MG TAB.SR.12H PO SCH (09:00)
[2020-07-13] MEDS: FUROSEMIDE 40 MG TABLET PO SCH (09:00)
[2020-07-13] MEDS: FERROUS SULFATE (325 MG) 325 MG/TAB TABLET PO SCH ×3 (09:01→16:48)
[2020-07-13] MEDS: ESCITALOPRAM OXALATE (10 MG) 10 MG TABLET PO SCH (09:01)
[2020-07-13] MEDS: DEXAMETHASONE 4 MG TABLET PO SCH (09:01)
[2020-07-13] MEDS: TRAMADOL HCL 50 MG TABLET PO SCH (09:01)
[2020-07-13] MEDS: PANTOPRAZOLE 40 MG TABLET.DR PO SCH (09:01)
[2020-07-13] MEDS: OXCARBAZEPINE 150 MG TABLET PO SCH ×2 (09:02→16:50)
[2020-07-13] MEDS: GABAPENTIN 300 MG CAPSULE PO SCH ×3 (09:02→16:50)
[2020-07-13] MEDS: METOPROLOL TARTRATE 25 MG TABLET PO SCH ×2 (09:02→22:05)
[2020-07-13] MEDS: AMLODIPINE BESYLATE 5 MG TABLET PO SCH (09:02)
[2020-07-13] MEDS: POTASSIUM CHLORIDE 20 MEQ TAB.PRT.SR PO SCH ×2 (09:02→16:50)
--- NOTE | 2020-07-13 18:42 | NUR ---
MANAGEMENT RETAIL INTERN NOTES PATIENT IN BED ALERT ORIENTED X 3. NO ACUTE DISTRESS NOTED. NO SOB NOTED. PATIENT REFUSED IV ACCESS, FIORDALIZA DIAZ AWARE. HEAD OF BED ELEVATED. NEEDS ATTENDED AND ANTICIPATED. SAFETY MEASURES IN PLACE. CALL LIGHT WITHIN REACH. WILL ENDORSE TO NIGHT NURSE FOR CONTINUITY OF CARE
--- NOTE | 2020-07-13 19:18 | NUR ---
UNDER GROUND MINER: CONTINUITY OF CARE Received patient in bed awake. On 2L Oxygen via NC. Sinus Loy HR 41 in the Tele monitor. No cough, denies shortness of breath. No IV peripheral line, MD aware per report. Maintained contact, droplet isolation with eye protection.
[2020-07-13 20:00] VITALS: BP 111/65
[2020-07-13] MEDS: ATORVASTATIN 40 MG TABLET PO SCH (22:05)
--- NOTE | 2020-07-13 22:11 | NUR ---
GAMBLING COUNSELLOR: ANTICOAGULANT H/H 103/32 PLT 167 No bleeding. Heparin injection given co-signed with LATOYA Pena.
--- NOTE | 2020-07-13 22:18 | NUR ---
WIRE BENDER HAND: ACCU- CHEK Blood glucose 254mg/dl given 6units per ISS parameters co-signed by LATOYA Pena.
[2020-07-14] VITALS: BP 136/57
[2020-07-14 04:00] VITALS: BP 138/67
--- NOTE | 2020-07-14 06:17 | NUR ---
PARAGLIDING INSTRUCTOR: END OF SHIFT REPORT Sinus Loy HR 46 in the Tele monitor. Remains on Oxygen 2L via NC, Oxygen sat in high 90's. No c/o chest pain, no cough. No acute events overnight, afebrile. Maintained contact, droplet isolation with eye shield protection. Plan for dc home with caregiver. Will endorse to oncoming RN.
[2020-07-14] MEDS: BLOOD SUGAR DIAGNOSTIC 1 EACH STRIP IN SCH ×3 (07:00→18:21)
[2020-07-14] MEDS: INSULIN REGULAR, HUMAN 100 UNIT/ML 3 ML VIAL SQ PRN ×3 (07:04→18:22)
--- NOTE | 2020-07-14 07:05 | NUR ---
NURSE EPIDEMIOLOGIST: ACCU-CHEK Blood glucose 172mg/dl. Given 6units insulin injection co-signed by LATOYA Pena.
--- NOTE | 2020-07-14 07:30 | NUR ---
ms rn received on bed, awake,alert,oriented x4,not in any form of distress,respirations even and unlabored,no sob noted, lungs have bilateral ronchi,denies pain at this time, will monitor patient's condition.
[2020-07-14 08:00] VITALS: BP 139/106
--- NOTE | 2020-07-14 09:10 | NUR ---
ms rodriguez breakfast served,due meds given,tolerated well.
[2020-07-14] MEDS: ASPIRIN 81 MG TAB.CHEW PO SCH (09:39)
[2020-07-14] MEDS: DEXAMETHASONE 4 MG TABLET PO SCH (09:39)
[2020-07-14] MEDS: MULTIVITAMINS,THERAGRAN 1 UDTAB TABLET PO SCH (09:39)
[2020-07-14] MEDS: GABAPENTIN 300 MG CAPSULE PO SCH ×3 (09:40→16:56)
[2020-07-14] MEDS: PANTOPRAZOLE 40 MG TABLET.DR PO SCH (09:40)
[2020-07-14] MEDS: ESCITALOPRAM OXALATE (10 MG) 10 MG TABLET PO SCH (09:40)
[2020-07-14] MEDS: FERROUS SULFATE (325 MG) 325 MG/TAB TABLET PO SCH ×3 (09:40→16:56)
[2020-07-14] MEDS: FUROSEMIDE 40 MG TABLET PO SCH (09:41)
[2020-07-14] MEDS: TRAMADOL HCL 50 MG TABLET PO SCH (09:41)
[2020-07-14] MEDS: POTASSIUM CHLORIDE 20 MEQ TAB.PRT.SR PO SCH ×2 (09:41→16:57)
[2020-07-14] MEDS: METOPROLOL TARTRATE 25 MG TABLET PO SCH (09:43)
[2020-07-14] MEDS: AMLODIPINE BESYLATE 5 MG TABLET PO SCH (09:44)
[2020-07-14] MEDS: oxyCODONE HCL SR 10MG TAB.SR.12H PO SCH (09:45)
[2020-07-14] MEDS: OXCARBAZEPINE 150 MG TABLET PO SCH ×2 (09:48→16:57)
--- NOTE | 2020-07-14 11:00 | NUR ---
ms rn was seen by bel tejeda,will order for d/c today, family is aware.
[2020-07-14] MEDS ORDERED: METO25TA20 PO (11:14)
[2020-07-14] MEDS ORDERED: DEXA4TAB2 PO (11:14)
[2020-07-14] MEDS ORDERED: ASPI-1169 PO (11:14)
[2020-07-14 13:00] VITALS: BP 160/106
[2020-07-14] MEDS: hydrALAZINE HCL 25 MG TABLET PO PRN (13:42)
[2020-07-14 16:00] VITALS: BP 146/82
[2020-07-14] MEDS: ACETAMINOPHEN 325 MG TABLET PO PRN (17:00)
--- NOTE | 2020-07-14 19:00 | NUR ---
ms rn patient dc to home, daughter Krzysztof is aware, prescription faxed to [facility],richard holliday,was able to confirm with zeyad.
== END 2020-07-14 18:54 | disposition home health service (06) | DRG 177 ==
LOC: ER 22:21 → TELE2 23:39
PROVIDERS: ADMIT Student in an Organized Health Care Education/Training Program; ATTEND Nurse Practitioner Acute Care
DX: U07.1 COVID-19 (principal); N17.0 Acute kidney failure with tubular necrosis; I25.110 Atherosclerotic heart disease of native coronary artery with unstable angina pectoris; Z68.42 Body mass index [BMI] 45.0-49.9, adult; D61.818 Other pancytopenia; Z66 Do not resuscitate; E66.01 Morbid (severe) obesity due to excess calories; Z86.73 Personal history of transient ischemic attack (TIA), and cerebral infarction without residual deficits; Z95.1 Presence of aortocoronary bypass graft; F41.9 Anxiety disorder, unspecified; Z95.5 Presence of coronary angioplasty implant and graft; M89.9 Disorder of bone, unspecified; Z85.3 Personal history of malignant neoplasm of breast; F32.9 Major depressive disorder, single episode, unspecified; G89.29 Other chronic pain; E61.1 Iron deficiency; G47.33 Obstructive sleep apnea (adult) (pediatric); D64.9 Anemia, unspecified; D72.819 Decreased white blood cell count, unspecified; M19.90 Unspecified osteoarthritis, unspecified site; Z88.1 Allergy status to other antibiotic agents; E78.5 Hyperlipidemia, unspecified; Z85.828 Personal history of other malignant neoplasm of skin; E11.51 Type 2 diabetes mellitus with diabetic peripheral angiopathy without gangrene; C73 Malignant neoplasm of thyroid gland; M50.323 Other cervical disc degeneration at C6-C7 level; M48.02 Spinal stenosis, cervical region; I10 Essential (primary) hypertension; Z79.84 Long term (current) use of oral hypoglycemic drugs
CPT/HCPCS: 36415; 70450-TC; 71045-TC; 72125-TC; 76536-TC; 77075-TC; 80048-TC; 80053-TC; 80061-TC; 80076-TC; 81001; 82232; 82272-TC; 82570-TC; 82728-TC; 82784; 82962-TC; 83540-TC; 83605-TC; 83735-TC; 83880; 84100-TC; 84155; 84155-TC; 84165; 84300-TC; 84439-TC; 84443-TC; 84484-TC; 85025-TC; 85378-TC; 86140-TC; 86225; 86235; 86300; 86334; 86431-TC; 86800; 87040-TC; 87081-TC; 87086-TC; 93308-TC; 97116-TC; 97530-TC; C9803; G0378; J1644; J1815; J2405; J2916; J7030; J8540; U0003